=== PATIENT | male | born 1985 | race Hispanic/Latino ===

== ENCOUNTER 2018-12-05 13:15 | Emergency (ER) | payer SELFPAY ==
[2018-12-05] MEDS ORDERED: KETOROLAC 30 MG/ML INJ ONE (14:01)
--- NOTE | 2018-12-05 14:16 | RAD REPORT ---
EXAM DESCRIPTION: CT - C Spine Wo Con - 12/05/2018 1:58 pm CLINICAL HISTORY: PAIN COMPARISON: Thoracic Spine W/o Cont dated 12/05/2018 FINDINGS: The cervical vertebral body heights are maintained. Mild disc thinning with posterior oste ophyte involves lower cervical spine. No evidence of acute cervical spine fracture or subluxation. Prevertebral soft tissues are normal in thickness. IMPRESSION: Negative for acute cervical spine abnormality. Mild lower cervical spondylosis. All CT scans are performed using dose optimization technique as appropriate and may include automated exposure control or mA/KV adjustment according to patient size.
--- NOTE | 2018-12-05 14:17 | RAD REPORT ---
EXAM DESCRIPTION: CT - Thoracic Spine W/o Cont - 12/05/2018 2:00 pm CLINICAL HISTORY: Radiculopathy. PAIN COMPARISON: No comparisons TECHNIQUE: Axial CT imaging through the thoracic spine was performed with coronal and sagittal re-fo rmatted images. All CT scans are performed using dose optimization technique as appropriate and may include automated exposure control or mA/KV adjustment according to patient size. FINDINGS: Vertebral body heights and disc spaces are maintained. A compression fracture is not prese nt. No significant disc space narrowing. Thoracic spine alignment is within normal limits. No paraspinal masses or hematoma. Intervertebral disc detail is inherently limited on CT without gross findings of canal compromise. IMPRESSION: Negative study.
--- NOTE | 2018-12-05 14:44 | EDPHYS ---
Physician Documentation [facility] Name: Sandro Florian Age: 33 yrs Sex: Male : 1985 Arrival Date: 12/05/2018 Time: 13:18 Bed 19 Private MD: ED Physician Bernardino Muro HPI: 12/05 13:31 This 33 yrs old Male presents to ER via Ambulatory with complaints of neck and cp upper back pain. 13:31 The patient or guardian complains of pain, that is acute, tenderness, stiffness. The cp symptoms are located on the left scapular area and left trapezius and lower neck. 13:31 Onset: The symptoms/episode began/occurred last week, and became worse yesterday, after cp adjustment by chiropractor. 13:31 Associated signs and symptoms: Pertinent positives: tingling left fifth finger, cp Pertinent negatives: fever, headache, vomiting, weakness. Modifying factors: the symptoms are aggravated by movement. Historical: - Allergies: 13:18 No Known Allergies; sv - PMHx: 13:18 None; sv - PSHx: 13:18 None; sv - Immunization history:: Adult Immunizations up to date. - Social history:: Smoking status: Patient uses tobacco products, denies chronic smoking, but will smoke occasionally. - Ebola Screening: : No symptoms or risks identified at this time. ROS: 13:35 Constitutional: Negative for body aches, chills, fever, poor PO intake. cp 13:35 Eyes: Negative for injury, pain, redness, and discharge. cp 13:35 ENT: Negative for drainage from ear(s), ear pain, sore throat, difficulty swallowing, difficulty handling secretions. 13:35 Neck: Positive for pain with movement, pain at rest, stiffness, tenderness, Negative for swollen nodes. 13:35 Cardiovascular: Negative for chest pain, edema, palpitations. 13:35 Respiratory: Negative for cough, shortness of breath, wheezing. 13:35 Abdomen/GI: Negative for abdominal pain, nausea, vomiting, and diarrhea, constipation. 13:35 Back: Positive for pain at rest, pain with movement, of the left trapezius and left scapular area. 13:35 Skin: Negative for rash. 13:35 Neuro: Positive for tingling, of the left fifth finger, Negative for dizziness, headache, weakness. 13:35 All other systems are negative. Exam: 13:45 Constitutional: The patient appears in no acute distress, alert, awake, cp non-diaphoretic, non-toxic, well developed, well nourished, uncomfortable. 13:45 Head/Face: Normocephalic, atraumatic. cp 13:45 Eyes: Periorbital structures: appear normal, Conjunctiva: normal, no exudate, no injection, Sclera: no appreciated abnormality, Lids and lashes: appear normal, bilaterally. 13:45 ENT: External ear(s): are unremarkable, Nose: is normal, Mouth: Lips: moist, Oral mucosa: moist, Posterior pharynx: is normal, airway is patent. 13:45 Neck: C-spine: vertebral tenderness, that is moderate, appreciated at C7, ROM/movement: pain, that is moderate, with any movement. 13:45 Chest/axilla: Inspection: normal, Palpation: is normal, no crepitus, no tenderness. 13:45 Cardiovascular: Rate: normal, Rhythm: regular. 13:45 Respiratory: the patient does not display signs of respiratory distress, Respirations: normal, no use of accessory muscles, no retractions, no splinting, no tachypnea, labored breathing, is not present, Breath sounds: are clear throughout, no decreased breath sounds, no stridor, no wheezing. 13:45 Back: pain, that is moderate, of the left trapezius, left scapular area and thoracic area. 13:45 Skin: no rash present. 13:45 Neuro: Sensation: tingling, that is mild, of the left hand. Vital Signs: 13:18 BP 141 / 83; Pulse 93; Resp 22; Temp 98.4; Pulse Ox 97% ; Weight 83.91 kg; Height 5 ft. sv 9 in. (175.26 cm); Pain 8/10; 13:18 Body Mass Index 27.32 (83.91 kg, 175.26 cm) sv MDM: 13:27 Patient medically screened. cp 14:42 Data reviewed: vital signs, nurses notes, radiologic studies, CT scan. cp 14:42 Differential diagnosis: C-Spine Fracture Cervical Disc Herniation Cervical Raiculopathy cp cervical strain, Spondylolisthesis Spondylosis torticollis, Unstable Vertebral Fracture. Counseling: I had a detailed discussion with the patient and/or guardian regarding: the historical points, exam findings, and any diagnostic results supporting the discharge/admit diagnosis, radiology results, the need for outpatient follow up, a family practitioner, to return to the emergency department if symptoms worsen or persist or if there are any questions or concerns that arise at home. Response to treatment: the patient's symptoms have mildly improved after treatment, and as a result, I will discharge patient. ED course: VSS. CT negative for acute fracture. Will discharge to home for continued monitoring. 12/05 13:34 Order name: CT C Spine: worse pain after chiropractor adjustment yesterday; Complete cp Time: 14:32 12/05 14:32 Interpretation: Report reviewed. cp 12/05 13:34 Order name: CT Thoracic Spine Wo Cont: worse pain after chiropractor adjustment cp yesterday; Complete Time: 14:32 12/05 14:32 Interpretation: Report reviewed. cp 12/05 13:34 Order name: C-Collar; Complete Time: 14:36 cp Administered Medications: 13:48 Drug: TORadol 60 mg Route: IM; Site: right gluteus; aj 14:38 Follow up: Response: Pain is decreased aj Disposition: 12/06 07:36 Co-signature as Attending Physician, Bernardino Muro MD I agree with the assessment and kdr plan of care. Disposition: 12/05/18 14:43 Discharged to Home. Impression: Strain of muscle, fascia and tendon at neck level, Strain of muscle and tendon of back wall of thorax. - Condition is Stable. - Discharge Instructions: Muscle Strain, Cervical Sprain, Neck Exercises. - Prescriptions for Medrol (Neo) 4 mg Oral Tablets, Dose Pack - take 1 tablet by ORAL route as directed - follow package instructions. do not take with NSAIDS; 1 packet. Baclofen 10 mg Oral Tablet - take 1 tablet by ORAL route 3 times per day no driving while taking medication; 20 tablet. Tramadol 50 mg Oral Tablet - take 1 tablet by ORAL route every 8 hours as needed. no driving while taking medication; 20 tablet. - Medication Reconciliation Form, Thank You Letter, Antibiotic Education, Prescription Opioid Use form. - Follow up: Private Physician; When: 2 - 3 days; Reason: Recheck today's complaints. - Problem is new. - Symptoms have improved. Signatures: Dispatcher [employer] Marcia Garcia RN RN sv Myers, Amanda, RN RN aj Rittger, Kevin, MD MD kdr Page, Corey, PA PA cp Corrections: (The following items were deleted from the chart) 12/05 14:51 14:43 12/05/2018 14:43 Discharged to Home. Impression: Strain of muscle, fascia and aj tendon at neck level; Strain of muscle and tendon of back wall of thorax. Condition is Stable. Forms are Medication Reconciliation Form, Thank You Letter, Antibiotic Education, Prescription Opioid Use. Follow up: Private Physician; When: 2 - 3 days; Reason: Recheck today's complaints. Problem is new. Symptoms have improved. cp
--- NOTE | 2018-12-05 14:44 | ER ---
Nurse's Notes [facility] Name: Sandro Florian Age: 33 yrs Sex: Male : 1985 Arrival Date: 12/05/2018 Time: 13:18 Bed 19 Private MD: Diagnosis: Strain of muscle, fascia and tendon at neck level;Strain of muscle and tendon of back wall of thorax Presentation: 12/05 13:18 Presenting complaint: Patient states: left posterior shoulder pain since last Saturday. sv Transition of care: patient was not received from another setting of care. Onset of symptoms was November 28, 2018. Initial Sepsis Screen: Does the patient meet any 2 criteria? No. Patient's initial sepsis screen is negative. Does the patient have a suspected source of infection? No. Patient's initial sepsis screen is negative. Care prior to arrival: None. 13:18 Method Of Arrival: Ambulatory sv 13:18 Acuity: YANN 4 sv Historical: - Allergies: 13:18 No Known Allergies; sv - PMHx: 13:18 None; sv - PSHx: 13:18 None; sv - Immunization history:: Adult Immunizations up to date. - Social history:: Smoking status: Patient uses tobacco products, denies chronic smoking, but will smoke occasionally. - Ebola Screening: : No symptoms or risks identified at this time. Screenin:00 Abuse screen: Denies threats or abuse. Denies injuries from another. Nutritional aj screening: No deficits noted. Tuberculosis screening: No symptoms or risk factors identified. Fall Risk None identified. Assessment: 14:00 General: Appears in no apparent distress. uncomfortable, Behavior is calm, cooperative, aj appropriate for age. Pain: Complains of pain in back of neck and back of left arm. Neuro: Level of Consciousness is awake, alert, obeys commands, Oriented to person, place, time, situation, Appropriate for age. Respiratory: Airway is patent Respiratory effort is even, unlabored, Respiratory pattern is regular, symmetrical. :. Derm: Skin is intact, is healthy with good turgor, Skin is pink, warm \T\ dry. normal. Derm: Skin is intact, is healthy with good turgor, Skin is pink, warm \T\ dry. normal. Musculoskeletal: Circulation, motion, and sensation intact. Range of motion: limited in left shoulder. 14:50 Reassessment: Patient appears in no apparent distress at this time. No changes from aj previously documented assessment. Patient and/or family updated on plan of care and expected duration. Pain level reassessed. Patient is alert, oriented x 3, equal unlabored respirations, skin warm/dry/pink. Patient states feeling better. Patient states symptoms have improved. Vital Signs: 13:18 BP 141 / 83; Pulse 93; Resp 22; Temp 98.4; Pulse Ox 97% ; Weight 83.91 kg; Height 5 ft. sv 9 in. (175.26 cm); Pain 8/10; 13:18 Body Mass Index 27.32 (83.91 kg, 175.26 cm) sv ED Course: 13:18 Patient arrived in ED. as 13:18 Triage completed. sv 13:19 Arm band placed on. sv 13:27 Blayne Herman PA is PHCP. cp 13:27 Bernardino Muro MD is Attending Physician. cp 13:40 Eusebia Muhammad, AMANDA is Primary Nurse. aj 13:59 CT C Spine: worse pain after chiropractor adjustment yesterday In Process Unspecified. EDMS 13:59 CT Thoracic Spine Wo Cont: worse pain after chiropractor adjustment yesterday In EDMS Process Unspecified. 14:00 Patient has correct armband on for positive identification. aj 14:00 No provider procedures requiring assistance completed. Patient did not have IV access aj during this emergency room visit. Administered Medications: 13:48 Drug: TORadol 60 mg Route: IM; Site: right gluteus; aj 14:38 Follow up: Response: Pain is decreased aj Outcome: 14:43 Discharge ordered by MD. cp 14:50 Discharged to home ambulatory. aj 14:50 Condition: good 14:50 Discharge instructions given to patient, Instructed on discharge instructions, follow up and referral plans. medication usage, Demonstrated understanding of instructions, follow-up care, medications, Prescriptions given X 3. 14:51 Patient left the ED. aj Signatures: Dispatcher [employer] Marcia Garcia RN RN sv Myers, Amanda, RN RN aj Martinez, Amelia as Blayne Herman PA PA cp
== END 2018-12-05 14:51 | disposition home or self-care (01) ==
LOC: ER 13:15
DX: S16.1XXA Strain of muscle, fascia and tendon at neck level, initial encounter (principal); S29.012A Strain of muscle and tendon of back wall of thorax, initial encounter; X58.XXXA Exposure to other specified factors, initial encounter; Y93.89 Activity, other specified; Y92.9 Unspecified place or not applicable; Z72.0 Tobacco use
CPT/HCPCS: 72125; 72128; 96372; 99283